=== PATIENT | female | born 1960 | race Caucasian/White ===

== ENCOUNTER 2020-05-10 11:08 | Outpatient (CLI) | payer OTHER, SELFPAY ==
--- NOTE | ~2020-05-10 | XR_ITS ---
EXAMINATION: XR knee RT 3V EXAM DATE: 05/10/2020 11:28 INDICATION: No known recent injury provided at this time. Pain of the right knee. TECHNIQUE: Three projections of the right knee. There is no prior study for comparison. FINDINGS: No evidence osteochondral defect or joint body in the right knee joint. There is mild pat ellofemoral primary osteoarthritis. There are no acute fractures or dislocations identified. There i s no subcutaneous gas. The soft tissue is unremarkable. There are no radiopaque foreign bodies. N o joint effusion. IMPRESSION: Mild right patellofemoral compartment osteoarthritis. Reviewed, dictated and finalized at location B.
--- NOTE | ~2020-05-10 | XR_ITS ---
EXAMINATION: XR knee LT 3V EXAM DATE: 05/10/2020 11:28 INDICATION: No known recent injury provided at this time. Pain of the knees. TECHNIQUE: Three projections of the left knee. There is no prior study for comparison. FINDINGS: No evidence osteochondral defect or joint body in the left knee joint. There is minimal patellofemoral compartment primary osteoarthritis. No joint effusion. There are no acute fractures o r dislocations identified. There is no subcutaneous gas. The soft tissue is unremarkable. There a re no radiopaque foreign bodies. IMPRESSION: Minimal left patellofemoral compartment osteoarthritis. Reviewed, dictated and finalized at location B.
--- NOTE | ~2020-05-10 | XR_ITS ---
EXAMINATION: XR hand BI arthritis min 3V EXAM DATE: 05/10/2020 11:28 INDICATION: No known recent injury provided at this time. Pain of the hands. TECHNIQUE: Right hand frontal, lateral and oblique projections obtained and reviewed. Left hand fron richard, lateral and oblique projections obtained and reviewed. Catchers projection of both hands. There is no prior study for comparison. FINDINGS: There is mild right 1st interphalangeal joint primary osteoarthritis. Otherwise joint spac es appear symmetric and uniform. There are no bony erosions identified. There are no acute fractures or dislocations identified. There is no subcutaneous gas. The soft tissue is unremarkable. There are no radiopaque foreign bodies. IMPRESSION: 1. Mild right 1st interphalangeal osteoarthritis. 2. Unremarkable left hand. Reviewed, dictated and finalized at location B.
== END 2020-05-10 11:09 | disposition home or self-care (01) ==
PROVIDERS: PCP Family Medicine; Visit Provider Family Medicine
DX: M25.50 Pain in unspecified joint (principal); M25.60 Stiffness of unspecified joint, not elsewhere classified; M19.041 Primary osteoarthritis, right hand; M17.0 Bilateral primary osteoarthritis of knee
CPT/HCPCS: 73130; 73562

== ENCOUNTER 2020-05-23 08:38 | Outpatient (CLI) | payer OTHER, SELFPAY ==
--- NOTE | 2020-05-23 08:50 | EST_ITS ---
Patient Info Name: Elsa Diane Age: 59 years : 1960 Gender: Female Ht: 67 in Wt: 160 lbs BSA: 1.86 m2 Technical Quality: Good Exam Date: 05/23/2020 9:19 AM Exam Location: [facility] Pulmonary Patient Status: Outpatient Admit Date: 05/23/2020 Staff Ordering Physician: Jayda Dumont MD Lining Feller Blindstitch: Sammy De La Torre RDCS, RT Attending Provider: LUIZ GAMBLE DO Referring Physician: Julia PALM; Exercise Technologist: Zohreh Nolan RDCS Exercise Physician: Luiz Gamble DO Exam Type: CA stress echo Study Info Indications I47.2 - Ventricular tachycardia Z82.49 - Family history of ischemic heart disease and other diseases of the circulatory system Treadmill exercise stress echocardiogram is performed. Summary 1. 1. Negative Terrence exercise stress test for ischemic ST changes by ECG criteria. 2. 2. Reduced functional capacity, achieving 8 METs of workload. 3. 3. Appropriate HR response to exercise. 4. 4. Appropriate HR recovery at 1 minute post exercise. 5. 5. Negative stress echocardiogram for ischemia by wall motion analysis. 6. 6. Patient informed of the above results. Stress Echo Findings Left Ventricle Appropriate increase in LV endocardial thickening with systole. Appropriate augmentation of contractility with systole. No wall motion abnormality. Left Ventricle Normal LV systolic function, no wall motion abnormality. Protocol: Terrence Stress ECG Details Stage: REST Duration (min): 6 min : 53 sec Speed (mph): 0.0 Grade (%): 0 HR (bpm): 65 SBP (mmHg): 135 DBP (mmHg): 78 METS: --- Stage: REST Duration (min): 25 min : 57 sec Speed (mph): 0.0 Grade (%): 0 HR (bpm): 77 SBP (mmHg): 135 DBP (mmHg): 78 METS: --- Stage: STAGE 1 Duration (min): 1 min : 0 sec Speed (mph): 1.7 Grade (%): 10 HR (bpm): 113 SBP (mmHg): 135 DBP (mmHg): 78 METS: --- Stage: STAGE 1 Duration (min): 2 min : 0 sec Speed (mph): 1.7 Grade (%): 10 HR (bpm): 128 SBP (mmHg): 135 DBP (mmHg): 78 METS: --- Stage: STAGE 1 Duration (min): 3 min : 0 sec Speed (mph): 1.7 Grade (%): 10 HR (bpm): 132 SBP (mmHg): 180 DBP (mmHg): 88 METS: --- Stage: STAGE 2 Duration (min): 1 min : 0 sec Speed (mph): 2.5 Grade (%): 12 HR (bpm): 135 SBP (mmHg): 180 DBP (mmHg): 88 METS: --- Stage: STAGE 2 Duration (min): 2 min : 0 sec Speed (mph): 2.5 Grade (%): 12 HR (bpm): 137 SBP (mmHg): 185 DBP (mmHg): 87 METS: --- Stage: STAGE 2 Duration (min): 3 min : 0 sec Speed (mph): 2.5 Grade (%): 12 HR (bpm): 142 SBP (mmHg): 185 DBP (mmHg): 87 METS: --- Stage: STAGE 3 Duration (min): 1 min : 0 sec Speed (mph): 3.4 Grade (%): 14 HR (bpm): 149 SBP (mmHg): 192 DBP (mmHg): 84 METS: --- Stage: STAGE 3 Duration (min): 1 min : 1 sec Speed (mph): 0.0 Grade (%): 0 HR (bpm): 148 SBP (mmHg): 192 DBP (mmHg): 84 METS: ---
== END 2020-05-23 08:39 | disposition home or self-care (01) ==
LOC: ANHCARD 08:42
PROVIDERS: PCP Family Medicine; Visit Provider Family Medicine
DX: I47.2 Ventricular tachycardia (principal); R68.89 Other general symptoms and signs; Z82.49 Family history of ischemic heart disease and other diseases of the circulatory system
CPT/HCPCS: 93351

== ENCOUNTER 2020-09-16 12:00 | Outpatient (NON) | payer OTHER, SELFPAY ==
[2020-09-18 18:21] LABS: SARS-CoV-2 RNA PCR Negative
== END 2020-09-16 12:01 ==
LOC: ANHCOVIDDT 12:01
PROVIDERS: PCP Family Medicine; Visit Provider Physician Assistant
DX: Z20.828 Contact with and (suspected) exposure to other viral communicable diseases (principal); R51.9 Headache, unspecified; J02.9 Acute pharyngitis, unspecified
CPT/HCPCS: 87635; C9803; U0003

== ENCOUNTER 2021-09-22 09:52 | Outpatient (CLI) | payer OTHER, SELFPAY ==
--- NOTE | ~2021-09-22 | CT_ITS ---
EXAMINATION: CT abdomen pelvis w con DATE: 09/22/2021 10:34 INDICATION: Abdominal distention TECHNIQUE: Computed tomography (CT) of the abdomen and pelvis was performed with 100 cc Omnipaque 350 intravenous contrast. The dose-length product was 600.07 mGy-cm. Automated exposure control and iter ative reconstruction technique were employed. COMPARISON: None. FINDINGS: Lung bases are unremarkable. Heart size normal. No significant pleural or pericardial effus ion. There is a fat-containing umbilical hernia. There is hepatomegaly with fatty infiltration of the liver. The spleen, pancreas, adrenal glands and kidneys are unremarkable. Gallbladder is present. No nobstructive bowel gas pattern. No free air or free fluid. Colonic diverticulosis without evidence fo r diverticulitis. Mild thickening of the body of the stomach, likely due to underdistention, although gastritis is not excluded. Small umbilical hernia containing fat. No acute osseous abnormality. Ther e are partially calcified uterine fibroids. IMPRESSION: 1. Mild thickening of the body of the stomach, likely due to underdistention, although gastritis is n ot excluded. 2: Colonic diverticulosis without evidence for diverticulitis. 3: Hepatomegaly with fatty infiltration of the liver. Reviewed, dictated and finalized at location A. OGY FACULTY MEMBER IMPRESSION: 1. Mild thickening of the body of the stomach, likely due to underdistention, a lthough gastritis is not excluded. 2: Colonic diverticulosis without evidence for diverticulitis. 3: Hepatomegaly with fatty infiltration of the liver.
[2021-09-22 10:15] LABS: Estimated Glomerular Filt Rate > 60
== END 2021-09-22 09:53 | disposition home or self-care (01) ==
LOC: ANHIMG 09:57
PROVIDERS: PCP Family Medicine; Visit Provider Physician Assistant
DX: R14.0 Abdominal distension (gaseous) (principal); K57.90 Diverticulosis of intestine, part unspecified, without perforation or abscess without bleeding; R16.0 Hepatomegaly, not elsewhere classified; R93.3 Abnormal findings on diagnostic imaging of other parts of digestive tract
CPT/HCPCS: 74177; Q9967

== ENCOUNTER → 2022-01-10 07:31 | Outpatient (CLI) | payer OTHER, SELFPAY ==
[2022-01-10 17:38] LABS: SARS-CoV-2 RNA PCR Negative
== END ==
PROVIDERS: PCP Family Medicine; Visit Provider Physician Assistant Medical
DX: R05.9 Cough, unspecified (principal); Z20.822 Contact with and (suspected) exposure to COVID-19
CPT/HCPCS: C9803; U0003; U0005

== ENCOUNTER 2023-06-08 11:16 | Outpatient (CLI) | payer OTHER, SELFPAY ==
[2023-06-08 11:42] LABS: Kit Draw Collected
== END 2023-06-08 11:17 | disposition home or self-care (01) ==
LOC: ANHGOSHLAB 11:17
PROVIDERS: PCP Family Medicine; Visit Provider Nurse Practitioner Family
DX: E55.9 Vitamin D deficiency, unspecified (principal)
CPT/HCPCS: 36415

== ENCOUNTER → 2023-10-14 13:43 | Outpatient (CLI) | payer OTHER, SELFPAY ==
--- NOTE | ~2023-10-14 | US_ITS ---
EXAMINATION: US carotid duplex BI DATE: 10/14/2023 14:07 INDICATION: Pulsatile tinnitus TECHNIQUE: Grayscale, color Doppler, and pulsed Doppler images of the cervical carotid arteries were obtained. The degree of vessel stenosis is placed in one of the following categories: normal, <50%, 5 0-69%, >=70% but less than near-occlusion, near-occlusion, or total occlusion. Note that percent sten osis relative to normal distal artery lumen diameter is indirectly measured from velocity measurement s as described by Edmond, et al. Radiology 2003; 229:340-346. Notes: Normal: Peak systolic velocity <125 centimeters/sec and no plaque <50%. Peak systolic velocity <125 ( EDV <40; ICA/CCA PSV ratio <2.0; used these factors only a tandem lesions or low cardiac output or co ntralateral disease) 50-69 %: PSV 125-230 (EDV 40-100; ratio 2-4) >= 70% but less than near occlusion: PSV greater than 230 (EDV > 100; ratio> 4.0) Near Occlusion: PSV that is variable; markedly narrowed lumen Occlusion: Absent flow on color/spectral Doppler and no lumen on menendez scale. COMPARISON: None. FINDINGS: RIGHT: The right common carotid artery (CCA) peak systolic velocity (PSV) is 160 cm/s. The right internal ca rotid artery (ICA) PSV is 134 cm/s. The right ICA end-diastolic velocity (EDV) is 33 cm/s. The right ICA/CCA PSV ratio is 0.8. The external carotid artery (ECA) PSV is 160 cm/s. There is antegrade flow in the right vertebral artery. LEFT: The left CCA PSV is 109 cm/s. The left ICA PSV is 114 cm/s. The left ICA EDV is 39 cm/s. The left ICA /CCA PSV ratio is 1.. The ECA PSV is 114 cm/s. There is antegrade flow in the left vertebral artery. IMPRESSION: 1. 50-69% stenosis in the right internal carotid artery by sonographic criteria. 2. Less than 50% stenosis in the left internal carotid artery by sonographic criteria. Reviewed, dictated and finalized at location L. TYPER IMPRESSION: 1. 50-69% stenosis in the right internal carotid artery by sonographic criteria . 2. Less than 50% stenosis in the left internal carotid artery by sonographic cr iteria.
== END ==
PROVIDERS: PCP Nurse Practitioner Family; Visit Provider Nurse Practitioner Family
DX: H93.A9 Pulsatile tinnitus, unspecified ear (principal); I65.23 Occlusion and stenosis of bilateral carotid arteries
CPT/HCPCS: 93880

== ENCOUNTER 2024-05-23 12:13 | Outpatient (CLI) | payer OTHER, SELFPAY ==
--- NOTE | ~2024-05-23 | XR_ITS ---
AP view of the pelvis and AP and lateral views of the right hip Clinical history: Pain Findings: No acute fracture or dislocation is seen. Osseous alignment is anatomic. Bilateral hip and SI joint spaces are preserved. Soft tissues are unremarkable. Impression: No significant abnormality is seen. Reviewed, dictated and finalized at [facility]. Impression: No significant abnormality is seen.
== END 2024-05-23 12:14 ==
LOC: GOSHIMG 12:14
PROVIDERS: PCP Family Medicine; Visit Provider Family Medicine
DX: M25.551 Pain in right hip (principal)
CPT/HCPCS: 73502

== ENCOUNTER 2025-05-24 11:22 | Outpatient (CLI) | payer OTHER, SELFPAY ==
--- NOTE | ~2025-05-24 | XR_ITS ---
EXAM/ PROCEDURE: XR hip BI 2V w AP pelvis - 05/24/2025 11:24 CDT HISTORY: 64 years old Female with bilat hip pain COMPARISON: None available TECHNIQUE: Three view(s) FINDINGS/ IMPRESSION: There are no fractures or dislocations.Joint space narrowing, subchondral sclerosis, subchondral cyst formation and osteophyte formation, compatible with mild osteoarthritis. Reviewed, dictated and finalized at location A.
== END 2025-05-24 11:23 | disposition home or self-care (01) ==
LOC: GOSHIMG 11:23
PROVIDERS: PCP Family Medicine; Visit Provider Family Medicine
DX: M25.551 Pain in right hip (principal); M25.552 Pain in left hip
CPT/HCPCS: 73521

== ENCOUNTER 2025-10-16 00:55 | Day surgery (SDC) | payer MEDICARE, SELFPAY ==
[2025-09-26 12:26] VITALS: BMI 25.1
--- OUTSIDE RECORDS SUMMARY | 2025-10-16 00:57 | XMS_ITS | Encounter Summary ---
Author Organization [facility] Address [address] [place] [address] Phone Care Team Providers Care Firepot Operator And Tender Name Role Phone Jayda Dumont MD Primary Care Provider + Reason for Visit * Reason Onset Date Comments Scheduling Appointments 10/08/2025 Encounter Details Date Type Department Care Team (Late st Contact Info) Description 10/08/2025 Telephone [facility] Medicine Ophthalmology [address] [place], [place] [phone] Ganga Romero MD [address] [id number] Scheduling Appointments Social History Tobacco Use Types Packs/Day Years Used Date Smoking Tobacco: Never Smokeless Tobacco: Never Alcohol Use Standard Drinks/Week Comments No 0 (1 standard drink = 0.6 oz pur e alcohol) AUDIT-C Answer Date Recorded Frequency of Alcohol Consumption Not on file 01/25/2024 Q2: How many drinks containi ng alcohol do you have on a typical day when you are drinking? 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 What is the patient coming in for? bilaterally upper and lower In the patients words, what is bringing them in? Blepharoplasty Who is referring? Dr Jory Buchanan Date scheduled: 11/05/25 Is the patient aware of the consultation fee of $250 due at check on the date of service? Yes NEW patients:This fee is for consultation only & does NOT go towards surgery fees. RET cosmetic patients: This fee will be applied to procedure Did you loy DO NOT BILL? Yes Has the estimate been added? No For Hylenex treatments: Hylenex- the first treatment is covered with the $250 consult fee. All subsequent Hylenex treatments will be priced at $250 per vial. This cost will apply to the cost of surgery. No need to add estimate. Please do not schedule with Nick. He no longer does cosmetic procedures. CTOR OF ADULT EPILEPSY documented in this encounter Plan of Treatment Not on file documented as of this encounter Visit Diagnoses Not on filedocumented in this encounter Additional Health Concerns Infection Onset Date Last Indicated Resolved Time COVID: Recovered Comment:Added based on recent COVID infection. 07/14/2025 08/16/2025 10/12/2025 7:[address] documented as of this encounter Care Teams Firepot Operator And Tender Relationship Specialty Start Date End Date Jayda Dumont MD PCP - General Family Medicine 05/29/21 documented as of this encounter
--- OUTSIDE RECORDS SUMMARY | 2025-10-16 00:57 | XMS_ITS | Encounter Summary ---
Author Organization [employer] Address [address] [place] [address] Care Team Providers Care Finish Mender Name Role Phone Jayda Dumont MD Primary Care Provider [phone] Encounter Details Date Type Department Care Team (Latest Contact Info) Description 04/24/2008 Outpatient Historical [facility], [address] Latesha Huggins MD [address] [facility] [address] [place] [address] Screening for Malignant Neoplasm of the Cervix Social History Tobacco Use Types Packs/Day Years Used Date Smoking Tobacco: Never Assessed Comments Unknown Sex and Gender Information Value Date Recorded Sex Assigned at Not on file Legal 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 Female 3:35 AM 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 Gender Identity Not on file Sexual Orientation Not on file documented as of this encounter Plan of Treatment Not on file documented as of this encounter Procedures Procedure Name Priority Date/Time Associated Diagnosis Comments CERV/VAG CYTOPATH, SUREPATH AND HPV Routine 04/24/2008 12:54 PM CDT documented in this encounter Results * CERV/VAG CYTOPATH, SUREPATH AND HPV (04/24/2008 12:54 PM CDT) SOURCE Information not provided [facility] [place] [place] LAST MENSTRUAL PERIOD Information not provided [facility] [place] HPV HIGH RISK DNA DETECTION NOT DETECTED [facility] [place] [place] Comment: REFERENCE RANGE: NOT DETECTED PATIENTS WITHOUT HIGH-RISK HPV RARELY HAVE CERVICAL CANCER. THE ANALYTICAL PERFORMANCE CHARACTERISTICS OF THIS ASSAY, WHEN USED TO TEST SUREPATH OR VAGINAL SPECIMENS, HAVE BEEN DETERMINED BY [employer]. METHODOLOGY: HYBRID CAPTURE WITH SIGNAL AMPLIFICATION. [facility] [address] [place] [address] JULIO ARMENTA MD REPORT STATUS FINAL [facility] TAX MANAGER: MIKAELA PATEL(ASCP) [facility] [place] Comment: Lab test performed by: [employer] [facility] [address] [place] [address] JULIO ARMENTA MD PAP INTERP Negative for intraepithelial lesion or malignancy. [facility] [place] PREV PAP: Information not provided [facility] [place] [place] ADEQUACY: Satisfactory for evaluation. Endocervical/trans formation zone component present. Age and/or menstrual status not provided [facility] [place] CLINICAL INFORMATION Information not provided [facility] [place] PREV BX: Information not provided [facility] [place] Specimen from uterine cervix (specimen) 04/24/2008 12:54 PM CDT 04/24/2008 12:54 PM CDT Latesha Huggins MD PATHOLOGY/CYTOLOGY SUYAPA Penaloza [facility] [place] CLIA# [id number] [facility] [place] [address] documented in this encounter Visit Diagnoses Diagnosis Screening for malignant neoplasm of the cervix documented in this encounter Care Teams Finish Mender Relationship Specialty Start Date End Date Jayda Dumont MD PCP - General Family Practice 05/09/21 documented as of this encounter
--- OUTSIDE RECORDS SUMMARY | 2025-10-16 00:57 | XMS_ITS ---
Author Organization [facility] [address] Address [address] [place] [address] Care Team Providers Care Costumed Character Name Role Phone Jayda Dumont MD Primary Care Provider + Transplant Episode Kidney Potential Donor [facility] ([place], [place]) - [facility] Referred on 06/06/2020 Marked as Active on 06/06/2020 Reason: Pending Clinical Review Kidney CoordinatorTonja Hemphill RN Fax: N/A Email: N/A Care Team Name Role Phone Fax Email Tonja Hemphill RN Kidney Coordinator [phone] N/A N/A Events Pre-Donation Referred: 06/06/2020
--- OUTSIDE RECORDS SUMMARY | 2025-10-16 00:57 | XMS_ITS | Clinical Summary ---
Author Organization [facility] Address [address] [place] [address] Care Team Providers Care Drill Operator Pneumatic Name Role Phone Jayda Dumont MD Primary Care Provider [phone] Source Comments [facility],non-owned Affiliates and Associated Physician Practices is amultiple site organization consisting of ambulatory clinics and hospital sitesin [place], [place], [place] and [place]. This disclosure is being madepursuant to the Care Everywhere program and may not contain all information available regarding this patient. Last updated 18.[facility] Allergies No known active allergies Medications * Be aware that medications may not be up to date on this document. Alwaysverify current medications with the patient. DiphenhydrAMINE HCl, Sleep, (NYTOL) 25 MG Take 25 mg by mouth as directed 7 Active conj estrog-medroxyp rogest alexi (PREMPRO) 0.625-2.5 MG tablet Take 1 (one) tablet by mouth once daily 6 Active levothyroxine (SYNTHROID) 100 MCG tablet Take 1 (one) tablet by mouth daily before breakfast Active metoprolol tartrate (LOPRESSOR) 25 MG tablet Take 0.5 (one-half) tablet by mouth 2 times daily 9 Active ibuprofen (MOTRIN) 200 MG tablet Take 1 (one) tablet by mouth as needed Active acetaminophen (TYLENOL) 500 MG tablet Take 1 (one) tablet by mouth every 6 hours as needed Active busPIRone (BUSPAR) 10 MG tablet Take 1 (one) tablet by mouth 2 times daily 2 Active tretinoin (Retin-A) 0.025 % creamIndication s:Lentigines,Rh ytides Pea sized amount to arms and legs at night mixed with a bland cream. 30 days supply. 45 g 5 5 Active ergocalciferol (DRISDOL) 1.25 MG (48865 UT) capsule Take 1 (one) capsule by mouth every 7 days 0 10/02/20 25 Discontinu ed(Tx Complete) Active Problems Problem Noted Date Diagnosed Date Pulsatile tinnitus of left ear 06/06/2025 Inflamed seborrheic keratosis 01/14/2022 Solar lentiginosis 03/03/2021 Assessment & Plan (03/03/2021 12:34 PM CDT): - Explained benign nature, reassurance provided. - Advised pt on consistent sunscreen use (SPF > 30, UVA + UVB). - Start Triluma nightly Jul - March, Altreno nightly April - June (see cosmetic note) - Sunscreen handout provided Multiple benign melanocytic nevi of upper and lower extremities and trunk 03/03/2021 Assessment & Plan (03/03/2021 12:34 PM CDT): - Benign, reassurance - Counseled on importance of daily sun protection (Broad spectrum, SPF >30) - Sun screen hand out provided Squamous cell carcinoma of skin 04/08/2020 Overview (04/08/2020): Overview: squamous cell removal upper right chest removal 11/2010 Dense breasts 05/02/2018 Obesity 01/03/2018 Excessive subcutaneous fat 01/03/2018 Acquired hypothyroidism 08/21/2016 Overview (04/08/2020): Hypothyroidism (acquired) Anxiety 08/21/2016 Overview (04/08/2020): Anxiety Atrial paroxysmal tachycardia 08/21/2016 Overview (04/08/2020): PAT (paroxysmal atrial tachycardia) Benign hypertension 08/21/2016 Overview (04/08/2020): HTN (hypertension), benign Nonsustained ventricular tachycardia 08/21/2016 Overview (04/08/2020): NSVT (nonsustained ventricular tachycardia) Palpitations 08/21/2016 Overview (04/08/2020): Palpitations Panic attack 08/21/2016 Overview (04/08/2020): Panic attacks Vaginal atrophy 04/24/2013 Actinic keratosis 04/21/2011 Seborrheic keratosis 04/21/2011 Assessment & Plan (03/03/2021 12:33 PM CDT): -Benign, reassurance History of SCC (squamous cell carcinoma) of skin 04/21/2011 Assessment & Plan (03/03/2021 12:32 PM CDT): - No evidence of recurrence - Sun Screen hand out provided - Q12mos FBSE Resolved Problems Problem Noted Date Diagnosed Date Resolved Date Personal history of other ma lignant neoplasm of skin 04/21/2011 04/08/2020 Encounters Date Type Department Care Team Description 10/02/2025 1:40 PM BUCKLE FRAME SHAPER Cosmetic Visit [facility] - Cosmetic Dermatology [address] , [facility] [address] [place] [address] Jory Buchanan MD Lentigines ; Rhytides 10/02/2025 1:30 PM BUCKLE FRAME SHAPER Office Visit [facility] - Cosmetic Dermatology [address], [facility] [address] [place] [address] Jory Buchanan MD Actinic keratosis (Primary Dx); Arora angioma; Lentigines; Seborrheic keratoses; Multiple benign melanocytic nevi of upper and lower extremities and trunk; History of squamous cell carcinoma of skin 07/30/2025 Telephone [facility] - Centralized Scheduling [address] [place] [id number] Demond Sexton MD from Last 3 Months Immunizations Immunization Administration Dates Next Due [employer] BIVALENT 12Y+ 30mcg/0.3ML HEP A VACCINE, ADULT 04/20/2019,06/01/2018 INFLUENZA VACCINE 09/24/2021,08/24/2019 INFLUENZA VACCINE, CELL CULT URE, QUADR. (FLUCELVAX QUADRIVALENT; 6MO+) (CCIIV4) 09/11/2022 INFLUENZA VACCINE, QUADR. (F LUZONE; FLULAVAL; FLUARIX; AFLURIA QUADRIVALENT; 6MO+), 0.5 ML (IIV4) 09/16/2018 TDAP, HISTORIC VACCINE 05/21/2023 Zoster Hzv Vacc Recombinant Inj Im 07/21/2018, iNFLUENZA VACCINE, RECOM-BORREGO, QUADR. (FLUBLOCK QUADRIVALENT; 18Y+) (RIV4) 09/24/2021,09/27/2020,09/15/2019 Family History Medical History Relation Name Comments Cancer - Skin, Non Melanoma Maternal Aunt Cancer - Skin, Melanoma Neg Hx Eczema Neg Hx Psoriasis Neg Hx Relation Name Status Comments Maternal Aunt Social History Tobacco Use Types Packs/Day Years Used Date Smoking Tobacco: Never Smokeless Tobacco: Never Alcohol Use Standard Drinks/Week Comments Not Currently 0 (1 standard drink = 0.6 oz pur e alcohol) Comments Unknown Sex and Gender Information Value Date Recorded Sex Assigned at Not on file Legal Sex Female 5:27 PM BUCKLE FRAME SHAPER Gender Identity Not on file Sexual Orientation Not on file Last Filed Vital Signs Vital Sign Reading Time Taken Comments Blood Pressure 156/96 08/09/2023 2:47 PM CDT Pulse 80 08/09/2023 2:47 PM CDT Temperature 36.3 C (97.3 F) 01/03/2018 10:33 AM BUCKLE FRAME SHAPER Respiratory Rate - - Oxygen Saturation - - Inhaled Oxygen Concentration - - Weight 70.3 kg (155 lb) 06/06/2025 3:17 PM CDT Height 170.2 cm (5' 7) 06/06/2025 3:17 PM CDT Body Mass Index 24.28 06/06/2025 3:17 PM CDT Plan of Treatment Upcoming Encounters Date Type Department Care Team (Late st Contact Info) Description 06/05/2026 12:45 PM CDT Office Visit [facility] - ENT [address], [place] [address] [place] [address] Demond Sexton MD [address] [place] [address] [address] Health Maintenance Due Date Last Done Comments COLOGUARD (AGES 45-75) - COLON CA SCREENING 1960 COLON MONITORING 1960 COLONOSCOPY - COLON CA SCREENING 1960 CT COLONOGRAPHY - COLON CA SCREENING 1960 Colorectal Cancer Screening 1960 FIT - COLON CA SCREENING 1960 FLEX SIG - COLON CA SCREENING 1960 LIPID TESTING 1960 HIV SCREENING 1975 HEPATITIS C SCREENING 06/22/1978 PAP with HPV 1990 PNEUMOCOCCAL VACCINE 50+ (1 of 1 - PCV) 2010 Cervical Cancer Screening 04/30/2018 PAP SMEAR 04/29/2021 04/29/2018 DEPRESSION SCREENING 11/15/2024 MEDICARE AWV CALENDAR YEAR 2024 COVID-19 VACCINE ( season) 2025 11/20/2022, 03/23/2022, 08/22/2021, Additional history exists INFLUENZA VACCINE (#1) 2025 , 09/11/2022, 09/24/2021, Additional history exists MAMMOGRAM 05/24/2027 05/24/2025, 05/15, 06/06/2024, Additional history exists DTAP/TDAP/TD VACCINES (2 - Td or Tdap) 05/21/2033 05/21/2023 Respiratory Syncytial Virus (RSV) Vaccine Pt: or over 60 yrs (1 - 1-dose 75+ series) 2035 BONE DENSITY TESTING Completed 04/29/2018, 04/24/20 13 ZOSTER VACCINE Completed 07/21/2018, 04/15/2018 HEPATITIS B VACCINE Aged Out No longe r eligible based on patient's age to complete this topic HIB VACCINE Aged Out No longer eligi ble based on patient's age to complete this topic HPV VACCINE Aged Out No longer eligi ble based on patient's age to complete this topic MENINGOCOCCAL (Group B) VACCINE SHARED DECISION-MAKING Aged Out No longer eligible based on patient's age to complete this topic MENINGOCOCCAL GROUPS A/C/Y/W VACCINE Aged Out No longer eligible based on patient's age to complete this topic Procedures Procedure Name Priority Date/Time Associated Diagnosis Comments ID DESTROY PREMALIG LESION, 2-14 Routine 10/02/2025 2:19 PM BUCKLE FRAME SHAPER Actinic keratosis ID DESTROY PREMALIG LESION, 1ST LESION Routine 10/02/2025 2:19 PM BUCKLE FRAME SHAPER Actinic keratosis from Last 3 Months Results * ID DESTROY PREMALIG LESION, 1ST LESION, ID DESTROY PREMALIG LESION, 2-14 (10/02/2025 2:19 PM BUCKLE FRAME SHAPER) Narrative Jory Buchanan MD - 10/02/2025 2:19 PM BUCKLE FRAME SHAPER Jory Buchanan MD 10/02/2025 2:36 PM Diagnosis and treatment options discussed. Cryotherapy (Liquid Nitrogen) to 7 lesions for 4-6 seconds each. Number of cycles: 1. Wound care reviewed. Jory Buchanan MD PROCEDURE/MINOR SURGIC AL ORDERABLES Final Result from Last 3 Months Insurance [employer] MEDICARE ADV Care Teams Drill Operator Pneumatic Relationship Specialty Start Date End Date Jayda Dumont MD [address] [place] [address] PCP - General 01/13/22
--- OUTSIDE RECORDS SUMMARY | 2025-10-16 00:57 | XMS_ITS | Encounter Summary ---
Author Organization [facility] Address [address] [place] [address] Phone Care Team Providers Care Senior C Developer Name Role Phone Catalino Dumont MD Primary Care Provider [phone] Jayda Dumont MD Primary Care Provider + Encounter Details Date Type Department Care Team (Latest Contact Info) Description 05/23/2020 Orders Only [facility] Scanning, Provider Social History Tobacco Use Types Packs/Day Years Used Date Smoking Tobacco: Never Smokeless Tobacco: Never Alcohol Use Standard Drinks/Week Comments No 0 (1 standard drink = 0.6 oz pur e alcohol) Comments Unknown Sex and Gender Information Value Date Recorded Sex Assigned at Not on file Legal Sex Female 1:55 AM DRUGLESS DOCTOR Gender Identity Female 01/23/2024 5:27 PM CDT Sexual Orientation Straight 01/23/2024 5: 27 PM CDT documented as of this encounter Plan of Treatment Not on file documented as of this encounter Procedures Procedure Name Priority Date/Time Associated Diagnosis Comments CARDIOLOGY DOCUMENT SCAN 05/23/2020 documented in this encounter Results * SCAN - CARDIOLOGY (05/23/2020) Anatomical Region Laterality Modality Other us Provider Scanning [facility] CARDIAC SERVICES PROCEDURES Final Result documented in this encounter Visit Diagnoses Not on filedocumented in this encounter Additional Health Concerns Infection Onset Date Last Indicated Resolved Time COVID: Suspected 10/17/2022 10/17/2022 10/17/2022 4:12 PM DRUGLESS DOCTOR Influenza, adult 10/17/2022 10/17/2022 10/24/2022 3:06 AM DRUGLESS DOCTOR COVID: Suspected 12/06/2022 12/06/2022 12/06/2022 2:47 PM DRUGLESS DOCTOR COVID: Suspected 01/20/2023 01/20/2023 01/20/2023 11:36 AM DRUGLESS DOCTOR COVID: Suspected 06/03/2024 06/03/2024 06/03/2024 10:32 AM CDT COVID: Suspected 09/23/2024 09/23/2024 09/23/2024 11:22 AM DRUGLESS DOCTOR COVID: Suspected 02/01/2025 02/01/2025 02/01/2025 10:40 AM CDT COVID: Suspected 07/04/2025 07/04/2025 07/04/2025 2:14 PM CDT COVID19 07/04/2025 07/04/2025 07/14/2025 7:26 PM CDT COVID: Recovered Comment:Added based on recent COVID infection. 07/14/2025 08/16/2025 10/12/2025 7:[address] documented as of this encounter Care Teams Senior C Developer Relationship Specialty Start Date End Date Catalino Dumont MD PCP - General 06/04/17 05/28/21 Jayda Dumont MD PCP - General Family Medicine 05/29/21 documented as of this encounter
--- OUTSIDE RECORDS SUMMARY | 2025-10-16 00:57 | XMS_ITS | Clinical Summary ---
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 Active diphenhydrAMINE (BENADRYL) 25 mg capsule Take 1 tablet/capsule (25 mg total) by mouth nightly as needed for itching Active busPIRone (BUSPAR) 10 mg tablet nightly 2 Active levothyroxine (SYNTHROID) 100 mcg tablet Take 1 tablet (100 mcg total) by mouth daily 2 Active benzonatate (TESSALON) 100 mg capsuleIndicati ons:Cough Take 1 capsule (100 mg total) by mouth 3 (three) times a day as needed for cough 42 capsule 4 Active Additional Information Patient not taking.Reported on 08/23/2025 metoprolol XL (TOPROL-XL) 25 mg extended release tablet Take 0.5 tablets (12.5 mg total) by mouth daily 15 tablet 11 5 09/12/20 26 Active Active Problems Problem Noted Date Diagnosed Date Pulsatile tinnitus 09/24/2023 Assessment & Plan (09/24/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 - Advised pt on consistent sunscreen use (SPF > 30, UVA + UVB). - Start Triluma nightly Jul - March, Altreno nightly April - June (see cosmetic note) - Sunscreen handout provided Squamous cell carcinoma of skin 04/08/2020 Overview (04/11/2024): Overview: squamous cell removal upper right chest removal 11/2010 squamous cell removal upper right chest removal 11/2010 Dense breasts 05/02/2018 Excessive subcutaneous fat 01/03/2018 Obesity 01/03/2018 Anxiety 08/21/2016 Overview (02/18/2017): Anxiety Acquired hypothyroidism 08/21/2016 Overview (02/18/2017): Hypothyroidism (acquired) Atrial paroxysmal tachycardia 08/21/2016 Overview (02/18/2017): PAT (paroxysmal atrial tachycardia) Nonsustained ventricular tachycardia 08/21/2016 Overview (02/18/2017): NSVT (nonsustained ventricular tachycardia) Panic attack 08/21/2016 Overview (02/18/2017): Panic attacks Palpitations 08/21/2016 Overview (02/18/2017): Palpitations Assessment & Plan (08/23/2025 11:20 AM CDT): -History of NSVT (6 beats), PACs and short runs of atrial tachycardia -Recent increase in palpitations - will get a 7 day event monitor -Continue metoprolol XL 12.5 mg nightly, she is willing to try increasing dose to 25 mg nightly pending monitor results -Emotional stressors may also be contributing to her symptoms; she plans to pursue counseling in setting of recent loss of her mother and sister Assessment & Plan (08/10/2024 11:18 AM CDT): History of NSVT (6 beats), PACs and short runs of atrial tachycardia Intermittent brief palpitations. Will switch to long acting metoprolol for improved coverage - metoprolol XL 12.5 mg daily Assessment & Plan (08/12/2023 11:10 AM CDT): History of NSVT (6 beats), PACs and short runs of atrial tachycardia She recently discontinued metoprolol without recurrence of palpitations Prescription provided for metoprolol 12.5 mg every 6 hours PRN palpitations Benign hypertension 08/21/2016 Overview (02/18/2017): HTN (hypertension), benign Assessment & Plan (08/10/2024 11:18 AM CDT): BP well controlled Assessment & Plan (08/12/2023 11:11 AM CDT): BP elevated today, controlled on home readings Monitor home BP 3x/week and notify us/PCP if consistently elevated Pre-syncope 08/06/2016 Vaginal atrophy 04/24/2013 Actinic keratosis 04/21/2011 Inflamed seborrheic keratosis 04/21/2011 Overview (04/11/2024): Last Assessment & Plan: -Benign, reassurance Encounters Date Type Department Care Team Description 10/08/2025 Telephone [facility] Medicine Ophthalmology [address] [place] [address] Ganga Romero MD Scheduling Appointments 09/12/2025 Telephone [facility] Cardiology [address] [facility] [address]th [place] [address] [place] [address] Thomas Fermin MD 08/23/2025 11:15 AM CDT Ancillary Procedure [facility] [address] [place] [address] [address] [place] [address] Palpitations; Nonsustained ventricular tachycardia (HCC); Atrial paroxysmal tachycardia 08/23/2025 10:30 AM CDT Office Visit [facility] Cardiology [facility] [address] [place] [address] Tamela Albrecht, CECE Palpitations (Primary Dx); Nonsustained ventricular tachycardia (HCC); Atrial paroxysmal tachycardia 08/23/2025 Results Follow-Up [facility] Cardiology [facility] [address]th [place] [address] [place] [address] Tamela Albrecht, CECE ECG 12 lead, Extended/Mcc Holter Patch (>48 hours up to 7 days) from Last 3 Months Immunizations Immunization Administration Dates Next Due Hep A, Adult 04/20/2019,06/01/2018 Influenza, Quadrivalent, Rec ombinant, Egg Free, Preservative Free, Intramuscular 09/24/2021,09/27/2020,09/15/2019 Influenza, Quadrivalent, Spl it, Preservative Free, Intramuscular 09/16/2018 Influenza, Trivalent, Cell C ulture-based MDCK, Preservative Free, Antibiotic Free, Intramuscular 09/11/2022 Influenza, Unspecified 08/24/2019 Tdap 05/21/2023 ZOSTER Recombinant 07/22/2018,07/21/2018, 018 Medical History Medical History Date Comments Disorder of thyroid Thyroid dise ase Family History Medical History Relation Name Comments Car Accident Father Car accident; Other Mother Alive and well; Heart disease Other 1 Family history of Cardiovascular disease; Coronary artery disease Other 2 Fami ly history of Coronary artery disease; Hypertension Other 3 Family history of Hypertension; Relation Name Status Comments Father Mother Alive Other 1 Other 2 Other 3 Social History Tobacco Use Types Packs/Day Years Used Date Smoking Tobacco: Never Smokeless Tobacco: Never Tobacco Cessation:Counseling Given: Not Answered Alcohol Use Standard Drinks/Week Comments No 0 [...] on file 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[employer] Gender Identity Female 01/23/2024 5:27 PM CDT Sexual Orientation Straight 01/23/2024 5: 27 PM CDT Last Filed Vital Signs Vital Sign Reading Time Taken Comments Blood Pressure 120/82 08/23/2025 10:34 AM CDT Pulse 68 08/23/2025 10:34 AM CDT Temperature 36.8 C (98.2 F) 07/04/2025 2:06 PM CDT Respiratory Rate 20 07/04/2025 2:06 PM CDT Oxygen Saturation 95% 08/23/2025 10:34 AM CDT Inhaled Oxygen Concentration - - Weight 69.9 kg (154 lb) 08/23/2025 10:34 AM CDT Height 170.2 cm (5' 7) 08/23/2025 10:34 AM CDT Body Mass Index 24.12 08/23/2025 10:34 AM CDT Plan of Treatment Health Maintenance Due Date Last Done Comments Cervical Cancer Screening 1960 Colon Cancer Screening-Colonoscopy 1960 Depression Screening 1960 Fall Risk Assessment 1960 Hepatitis C Screening 1960 Hepatitis B Screening 1978 Pneumococcal vaccine 65+ (1 of 2 - PCV) 1979 Osteoporosis Screening-Bone Density Scan 04/29/2020 04/29/2018, 04/29/2018, 04/24/2013 Well Visit 65+ 2025 Influenza Vaccine (#1) 2025 , 09/11/2022, 09/24/2021, Additional history exists Breast Cancer Screening-Mammogram 05/24/2026 05/24/2025, 05/24/2025, 06/06/2024, Additional history exists DTaP/Tdap/Td Vaccine (3 - Td or Tdap) 05/21/2033 05/21/2023, 05/02/2013 Zoster Vaccine Completed 07/22/2018, 04/2018, 04/15/2018 Procedures Procedure Name Priority Date/Time Associated Diagnosis Comments EXTENDED/SENIOR CARE HOLTER PATCH (>48 HOURS UP TO 7 DAYS) Routine 08/23/2025 11:22 AM CDT Palpitations Nonsustained ventricular tachycardia (HCC) Atrial paroxysmal tachycardia ECG 12-LEAD Routine 08/23/2025 10:40 AM CDT Palpitations from Last 3 Months Results * Extended/Mcc Holter Patch (>48 hours up to 7 days) (08/23/2025 11:22 AM CDT) Anatomical Region Laterality Modality Electrocardiogra phy 08/26/2025 11:3 2 AM CDT Narrative 09/07/2025 12:01 PM CDT HOLTER MONITOR Patient Name: ELSA MOSQUEDA M : 1960 (65y 2m) Gender: F Study Date: 08/26/2025 11:32:51 AM Ht(Inch): Wt(Lb): BSA: Tech: Location: [facility] Order Provider: TAMELA ALBRECHT BMI: Ref Provider: TAMELA ALBRECHT PROCEDURES: Holter Report: EXTENDED/SENIOR CARE HOLTER PATCH (>48 HOURS UP TO 7 DAYS) [[id number]]. Enrollment Period: 2025-08-26 00:00:00 through 2025-09-02 00:00:00. Location: [facility]. INDICATIONS: R00.2 Palpitations, I47.29 Other ventricular tachycardia, and I47.19 Other supraventricular tachycardia. FINDINGS: Holter Data: Min Rate: 49 BPM Min Rate Timestamp: 2025-08-30 09:49:02 Bradycardia (% of study): 18 Max Rate: 172 BPM Max Rate Timestamp: 2025-08-31 19:22:45 Tachycardia (% of study): 5 Mean Rate: 73 BPM AFib (% of study): 0 Singlets (PACs): 621 events Couplets (PACs): 26 events Total (PACs): 785 events Singlets (PVCs): 19 events Couplets (PVCs): 0 events Total (VE): 19 events Runs (VT): 0 events Total beats: 691659 SIGNIFICANT PAUSES: 0 >3 sec Protocol: Recording Duration (Ordered): [id number] Recording Duration (Actual): 278205.69 6 triggers for chest pain showing sinus rhythm or supraventricular tachycardia and two with no symptoms recorded showing sinus tach or sinus rhythm SUMMARY: *The predominant rhythm was Sinus. *The Maximum Heart Rate recorded was 172 bpm, 08/31 19:22:45, the Minimum Heart Rate recorded was 49 bpm, 08/30 09:49:02, and the Average Heart Rate was 73 bpm. *There were 19 VE beats with a burden of <1 %. *There were 785 SVE beats with a burden of <1 %. There were 22 occurrences of Supraventricular Tachycardia with the Fastest episode 172 bpm, 08/31 19:22:43, and the Longest episode 11 beats, 08/27 11:59:01. *There were 8 Patient Triggers.; *The predominant rhythm was Sinus. *The Maximum Heart Rate recorded was 172 bpm, 08/31 19:22:45, the Minimum Heart Rate recorded was 49 bpm, 08/30 09:49:02, and the Average Heart Rate was 73 bpm. *There were 19 VE beats with a burden of <1 %. *There were 785 SVE beats with a burden of <1 %. There were 22 occurrences of Supraventricular Tachycardia with the Fastest episode 172 bpm, 08/31 19:22:43, and the Longest episode 11 beats, 08/27 11:59:01. *There were 8 Patient Triggers. CONCLUSIONS: 1. I have reviewed the PDF and all the ECG strips. I agree with the interpretations as detailed in the report 2. The PDF can be found in the Epic Patient chart. Please go to the Cardiology tab, click on the holter or event exam. Scroll to bottom where the ORDER LEVEL Documents reside and click the blue link to the pdf. Electronically Signed By: Abel Garza MD 09/07/2025 10:59:00 AM CDT Procedure Note Abel Garza MD - 09/07/2025 HOLTER MONITOR Patient Name: ELSA MOSQUEDA M : 1960 (65y 2m) Gender: F Study Date: 08/26/2025 11:32:51 AM Ht(Inch): Wt(Lb): BSA: Tech: Location: [facility] Order Provider: TAMELA ALBRECHT BMI: Ref Provider: TAMELA ALBRECHT PROCEDURES: Holter Report: EXTENDED/SENIOR CARE HOLTER PATCH (>48 HOURS UP TO 7 DAYS)[[id number]]. Enrollment Period: 2025-08-26 00:00:00 through 2025-09-02 00:00:00. Location: [facility]. INDICATIONS: R00.2 Palpitations, I47.29 Other ventricular tachycardia, and I47.19 Other supraventricular tachycardia. FINDINGS: Holter Data: Min Rate: 49 BPM Min Rate Timestamp: 2025-08-30 09:49:02 Bradycardia (% of study): 18 Max Rate: 172 BPM Max Rate Timestamp: 2025-08-31 19:22:45 Tachycardia (% of study): 5 Mean Rate: 73 BPM AFib (% of study): 0 Singlets (PACs): 621 events Couplets (PACs): 26 events Total (PACs): 785 events Singlets (PVCs): 19 events Couplets (PVCs): 0 events Total (VE): 19 events Runs (VT): 0 events Total beats: 709224 SIGNIFICANT PAUSES: 0 >3 sec Protocol: Recording Duration (Ordered): [id number] Recording Duration (Actual): 045773.69 6 triggers for chest pain showing sinus rhythm or supraventriculartachycardia and two with no symptoms recorded showing sinus tach or sinus rhythm SUMMARY: *The predominant rhythm was Sinus. *The Maximum Heart Raterecorded was 172 bpm, 08/31 19:22:45, the Minimum Heart Rate recorded was 49 bpm, 08/1609:49:02, and the Average Heart Rate was 73 bpm. *There were 19 VE beats with a burden of <1%. *There were 785 SVE beats with a burden of <1 %. There were 22 occurrences ofSupraventricular Tachycardia with the Fastest episode 172 bpm, 08/31 19:22:43, and theLongest episode 11 beats, 08/27 11:59:01. *There were 8 Patient Triggers.; *The predominant rhythm was Sinus. *The Maximum Heart Rate recorded was 172 bpm, 08/31 19:22:45, the MinimumHeart Rate recorded was 49 bpm, 08/30 09:49:02, and the Average Heart Rate was 73bpm. *There were 19 VE beats with a burden of <1 %. *There were 785 SVE beats with a burden of <1 %. There were 22 occurrencesof Supraventricular Tachycardia with the Fastest episode 172 bpm, 08/1719:22:43, and the Longest episode 11 beats, 08/27 11:59:01. *There were 8 Patient Triggers. CONCLUSIONS: 1. I have reviewed the PDF and all the ECG strips. I agree with theinterpretations as detailed in the report 2. The PDF can be found in the Epic Patient chart. Please go to theCardiology tab, click on the holter or event exam. Scroll to bottom where the ORDER LEVELDocuments reside and click the blue link to the pdf. Electronically Signed By: Abel Garza MD 09/07/2025 10:59:00 AM CDT us Tamela Albrecht NP [facility] PROCE DURES Final Result * ECG 12 lead (08/23/2025 10:40 AM CDT) us Tamela Albrecht NP ECG ORDERABLES Edited Re sult - Final from Last 3 Months Insurance [employer] [facility] [id number] [facility] [id number] [facility] [id number] Care Teams Iron Launder Operator Relationship Specialty Start Date End Date Jayda Dumont MD PCP - General Family Medicine 05/29/21
--- OUTSIDE RECORDS SUMMARY | 2025-10-16 00:57 | XMS_ITS | Encounter Summary ---
Author Organization [facility] Address [address] [place] [address] Phone Care Team Providers Care Supervisor Roving Department Name Role Phone Catalino Dumont MD Primary Care Provider [phone] Jayda Dumont MD Primary Care Provider + Encounter Details Date Type Department Care Team (Late st Contact Info) Description 06/09/2018 Telephone [facility] Cardiology [address] [facility] 8th [place] [address] [place] [address] Thomas Fermin MD [address] [facility] [address] [place], [place] [id number] Social History Tobacco Use Types Packs/Day Years Used Date Smoking Tobacco: Never Alcohol Use Standard Drinks/Week Comments No 0 (1 standard drink = 0.6 oz pur e alcohol) Comments Unknown Sex and Gender Information Value Date Recorded Sex Assigned at Not on file 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 Gender Identity Female 01/23/2024 5:27 PM CDT Sexual Orientation Straight 01/23/2024 5: 27 PM CDT documented as of this encounter Functional Status * BP Location Answer Date of Assessment Author Right arm 06/10/2018 9:06 AM CDT Mere Agosto RMA * BP Location Answer Date of Assessment Author Right del rosario 06/10/2018 9:06 AM CDT Mere Agosto RMA documented as of this encounter Plan of Treatment Not on file documented as of this encounter Visit Diagnoses Not on filedocumented in this encounter Additional Health Concerns Infection Onset Date Last Indicated Resolved Time COVID: Suspected 10/17/2022 10/17/2022 10/17/2022 4:12 PM PIGMENT SUPPLIER Influenza, adult 10/17/2022 10/17/2022 10/24/2022 3:06 AM PIGMENT SUPPLIER COVID: Suspected 12/06/2022 12/06/2022 12/06/2022 2:47 PM PIGMENT SUPPLIER COVID: Suspected 01/20/2023 01/20/2023 01/20/2023 11:36 AM PIGMENT SUPPLIER COVID: Suspected 06/03/2024 06/03/2024 06/03/2024 10:32 AM CDT COVID: Suspected 09/23/2024 09/23/2024 09/23/2024 11:22 AM PIGMENT SUPPLIER COVID: Suspected 02/01/2025 02/01/2025 02/01/2025 10:40 AM CDT COVID: Suspected 07/04/2025 07/04/2025 07/04/2025 2:14 PM CDT COVID19 07/04/2025 07/04/2025 07/14/2025 7:26 PM CDT COVID: Recovered Comment:Added based on recent COVID infection. 07/14/2025 08/16/2025 10/12/2025 7:[address] documented as of this encounter Care Teams Supervisor Roving Department Relationship Specialty Start Date End Date Catalino Dumont MD PCP - General 06/04/17 05/28/21 Jayda Dumont MD PCP - General Family Medicine 05/29/21 documented as of this encounter
--- OUTSIDE RECORDS SUMMARY | 2025-10-16 00:57 | XMS_ITS | Clinical Summary ---
Author Organization [facility] Address [address] [place] [address] Phone Care Team Providers Care Line Installer Repairer Name Role Phone Jayda Dumont MD Primary Care Provider [phone] Allergies No known active allergies Medications IBUPROFEN (ADVIL ORAL) Take by mouth. Active LEVOTHYROXINE 75 mcg tablet 88 mcg . 04/07/2015 Active ACETAMINOPHEN (TYLENOL ORAL) Take by mouth. Active metoprolol tartrate (LOPRESSOR) 25 mg tablet 12.5 mg . 03/14/2017 Active busPIRone (BUSPAR) 10 mg tablet TK 1 T PO QID 4 04/02/2017 Active conjugated estrogens-medrox yPROGESTERone (PREMPRO) 0.625-2.5 mg Tablet Take 1 Tablet by mouth daily. 90 Tablet 3 04/29/2018 Active Active Problems Problem Noted Date Diagnosed Date Dense breasts 05/02/2018 Vaginal atrophy 04/24/2013 Squamous cell carcinoma of skin Overview (05/10/2012): squamous cell removal upper right chest removal 11/2010 Encounters Date Type Department Care Team Description 10/02/2025 External Device Data ST[facility] ABSTRACTION Provider, Abstract 09/05/2025 External Device Data [facility] ABSTRACTION Provider, Abstract 09/04/2025 External Device Data [facility] ABSTRACTION Provider, Abstract 07/31/2025 External Device Data [facility] ABSTRACTION Provider, Abstract from Last 3 Months Family History Medical History Relation Name Comments Heart Attack Brother Hypertension Brother Other Father MVA Breast Cancer Maternal Aunt 1 50's Breast Cancer Maternal Aunt 2 60's Ovarian Cancer Maternal Cousin 20's Heart Disease Maternal Grandmother Hypertension Mother Stroke Mother Diabetes Sister Heart Attack Sister Colon Cancer Neg Hx Relation Name Status Comments Brother Alive Father Maternal Aunt 1 Alive Maternal Aunt 2 Maternal Cousin Alive Maternal Grandmother Mother Alive Sister Alive Social History Tobacco Use Types Packs/Day Years Used Date Smoking Tobacco: Never Smokeless Tobacco: Never Alcohol Use Standard Drinks/Week Comments Yes 0 (1 standard drink = 0.6 oz pur e alcohol) Rarely Comments No Sex and Gender Information Value Date Recorded Sex Assigned at Not on file 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 Gender Identity Not on file Sexual Orientation Not on file Occupation Industry Job Start Date Job End Date Not on file Not on file Not on file Not on file Last Filed Vital Signs Vital Sign Reading Time Taken Comments Blood Pressure 120/70 04/29/2018 10:31 AM CDT Pulse - - Temperature - - Respiratory Rate - - Oxygen Saturation - - Inhaled Oxygen Concentration - - Weight 72.6 kg (160 lb 2 oz) 04/29/2018 10:31 AM CDT Height 170.2 cm (5' 7) 04/29/2018 10:31 AM CDT Body Mass Index 25.08 04/29/2018 10:31 AM CDT Plan of Treatment Health Maintenance Due Date Last Done Comments FIT-DNA Q 3 years 2005 FIT/FOBT Q 1 year 2005 Flex Sig/CT Colonography Q 5 years 2005 PNEUMOCOCCAL VACCINE 50+ YEA RS (1 of 1 - PCV) 2010 OSTEOPOROSIS SCREENING 04/29/2020 04/29/2018, 2012 COLORECTAL SCREENING 04/29/2021 04/29/2011 Colorectal Cancer Screening 04/29/2021 INFLUENZA VACCINE (#1) 2025 , 09/11/2022, 09/24/2021, Additional history exists COVID-19 Vaccine (2 - 2024-2 6 season) 2025 11/20/2022 BREAST CANCER SCREENING 05/24/2026 05/24/20 25, 06/06/2024, 06/01/2023, Additional history exists DTAP/TDAP/TD VACCINES (2 - T d or Tdap) 05/21/2033 05/21/2023 RSV VACCINE (60+ or ) (1 - 1-dose 75+ series) 2035 ZOSTER VACCINE Completed 07/22/2018, 04/2018, 04/15/2018 Procedures Procedure Name Priority Date/Time Associated Diagnosis Comments MAMMO 3D EVIE SCREEN BILAT W OR WO CAD Routine 05/24/2025 3:02 PM CDT Visit for screening mammogram XR DEXA BONE DENSITY AXIAL 1 OR MORE SITES Routine 04/29/2018 12:01 PM CDT Screening for osteoporosis from Last 3 Months or Most Recently Relevant to Health Maintenance Results * MAMMO 3D EVIE SCREEN BILAT W OR WO CAD (05/24/2025 3:02 PM CDT) Anatomical Region Laterality Modality Breast Bilateral Mammography 05/24/2025 3:02 PM CDT Impressions 05/24/2025 3:06 PM CDT IMPRESSION: Negative. RECOMMENDATIONS: Bilateral annual screening mammogram RIGHT BREAST FINAL ASSESSMENT: BI-RADS CATEGORY 1: Negative. LEFT BREAST FINAL ASSESSMENT: BI-RADS CATEGORY 1: Negative. DICTATION LOCATION: [facility] Narrative 05/24/2025 3:06 PM CDT BILATERAL SCREENING DIGITAL MAMMOGRAMS WITH COMPUTER ASSISTED DIAGNOSIS WITH TOMOGRAPHY DATE: 05/24/2025 3:02 PM HISTORY: Routine screening mammogram. . COMPARISON: 06/06/2024 and 06/01/2023. TECHNIQUE: A bilateral screening mammogram was performed. Low-dose full-field digital breast tomosynthesis examination was performed with 2D and 3D acquisitions. Examination is read in conjunction with computer aided detection. BREAST COMPOSITION: Heterogeneously dense, which limits the sensitivity of mammography. FINDINGS: No new masses, suspicious calcifications or areas of asymmetry or distortion are identified. The images were reviewed using the CAD system. Juliana Mo MD MAMMO ORDERABLES Final Result * XR DEXA BONE DENSITY AXIAL 1 OR MORE SITES (04/29/2018 12:01 PM CDT) Anatomical Region Laterality Modality Digital Radiogra phy 04/29/2018 12:0 1 PM CDT Impressions 04/29/2018 12:05 PM CDT IMPRESSION: Osteopenic right femur neck BMD. Lumbar Spine T-score -0.7 Left femoral neck T-score -0.5 Right femoral neck T-score -1.1 Comments: None. Statistical change: No prior exam is available. Definitions: Normal: T-score above -1.0 Osteopenia T-score less than -1.0 and above -2.5 Osteoporosis: T-score <= -2.5 Follow-up Recommendations: Patients without high risk factors for osteoporosis T-score -1.0 to -1.5 - Consider repeat BMD in 5-10 years T-score -1.5 to - 2.0 - Consider repeat BMD in 3-5 years T-score -2.0 to - 2.5 - Consider repeat BMD every 2 years Patients on treatment for osteoporosis 1-2 years after initiation of treatment and every 2 years [address] Randi Eli MD DICTATION LOCATION: Location 1 - [facility] 04/29/2018 12:05 PM CDT EXAMINATION: BONE DENSITY STUDY (DXA) DATE: 04/29/2018 12:01 PM CLINICAL HISTORY: 57 years post menopausal female. PROCEDURE: Planar images of the lumbar spine and hip(s) using a [employer] DEXA scanner for bone mineral density determination (BMD). FINDINGS: Lumbar Spine (L1-L4) T-score -0.7 1.090 g/sq cm Left femoral neck T-score -0.5 0.972 g/sq cm Right femoral neck T-score -1.1 0.88 g/sq cm Detailed report placed in Imaging Section of [facility] [employer]. Procedure Note Randi Eli MD - 04/29/2018 EXAMINATION: BONE DENSITY STUDY (DXA) DATE: 04/29/2018 12:01 PM CLINICAL HISTORY: 57 years post menopausal female. PROCEDURE: Planar images of the lumbar spine and hip(s) using a LUNAR DEXA scanner for bone mineral density determination (BMD). FINDINGS: Lumbar Spine (L1-L4) T-score -0.7 1.090 g/sq cm Left femoral neck T-score -0.5 0.972 g/sq cm Right femoral neck T-score -1.1 0.88 g/sq cm Detailed report placed in Imaging Section of [facility]. IMPRESSION: Osteopenic right femur neck BMD. Lumbar Spine T-score -0.7 Left femoral neck T-score -0.5 Right femoral neck T-score -1.1 Comments: None. Statistical change: No prior exam is available. Definitions: Normal: T-score above -1.0 Osteopenia T-score less than -1.0 and above -2.5 Osteoporosis: T-score <= -2.5 Follow-up Recommendations: Patients without high risk factors for osteoporosis T-score -1.0 to -1.5 - Consider repeat BMD in 5-10 years T-score -1.5 to - 2.0 - Consider repeat BMD in 3-5 years T-score -2.0 to - 2.5 - Consider repeat BMD every 2 years Patients on treatment for osteoporosis 1-2 years after initiation of treatment and every 2 years thereafter [address] Randi Eli MD DICTATION LOCATION: Location 1 - [facility] Latesha Huggins MD DIAGNOSTIC IMAGING [facility] Final Result from Last 3 Months or Most Recently Relevant to Health Maintenance [facility] Care Teams Line Installer Repairer Relationship Specialty Start Date End Date Jayda Dumont MD PCP - General Family Practice 05/09/21
--- OUTSIDE RECORDS SUMMARY | 2025-10-16 00:57 | XMS_ITS | Encounter Summary ---
Author Organization [facility] Address [address] [place] [address] Care Team Providers Care Feeder Loader Name Role Phone Jayda Dumont MD Primary Care Provider [phone] Encounter Details Date Type Department Care Team (Late Contact Info) Description 07/30/2025 Telephone [facility] - Centralized Scheduling [facility] [place] [address] Demond Sexton MD [address] [address] [address] [address] [place] [address] Social History Tobacco Use Types Packs/Day Years Used Date Smoking Tobacco: Never Smokeless Tobacco: Never Alcohol Use Standard Drinks/Week Comments Not Currently 0 (1 standard drink = 0.6 oz pur e alcohol) Comments Unknown Sex and Gender Information Value Date Recorded Sex Assigned at Not on file 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 Gender Identity Not on file Sexual Orientation Not on file documented as of this encounter Plan of Treatment Upcoming Encounters Date Type Department Care Team (Late Contact Info) Description 06/05/2026 12:45 PM CDT Office Visit [facility] - ENT [address], [facility] [address] [place] [id number] Demond Sexton MD [address] [address] [place] [address] documented as of this encounter Visit Diagnoses Not on filedocumented in this encounter Care Teams Feeder Loader Relationship Specialty Start Date End Date Jayda Dumont MD [address] [place] [id number] PCP - General 01/13/22 documented as of this encounter
[2025-10-16 09:30] VITALS: BP 151/75; PULSE 92; RESP 18; TEMP 36.9; O2SAT 97; BMI 24.0
[2025-10-16] MEDS: LACTATED RINGERS 1,000 ML 150 ML IV CONT (09:48)
--- NOTE | 2025-10-16 10:07 | P.PNAN_ITS ---
Anes - Initial Pre Proc Eval Procedure: Operation Date: 10/16/25 10:30 Proposed Procedures p Screening Colonoscopy - Marcin Krishna MD Date/Time: 10/16/25 10:07 Surgeon: Marcin Krishna MD Pre Op Diagnosis: Personal history of colon polyps, unspecified Patient Data Age: 65 Gender: F Height: 1.7 m Weight: 69.6 kg Last Vital Signs Temp 36.9 C 10/16/25 09:30 Pulse 92 10/16/25 09:30 Resp 18 10/16/25 09:30 BP 151/75 H 10/16/25 09:30 Pulse Ox 97 10/16/25 09:30 O2 Del Method Room Air 10/16/25 09:30 Allergies Allergy/AdvReac Type Severity Reaction Status Date / Time escitalopram AdvReac Severe severe Verified 10/16/25 09:37 anxiety Home Medications ?Medication ?Instructions ?Recorded ?Confirmed ?Type conj estrogen-medroxyprogesterone 1 tablet PO DAILY 10/16/25 History 0.625 mg-2.5 mg tablet (Prempro) diphenhydramine HCl 25 mg capsule 25 mg PO HS PRN Slee p 09/19/19 10/16/25 History (Benadryl) ooxuqddq-bmv-pvhrt ac 400 1 tablet PO .q day 05/23/24 10/16/25 History mcg-calcium carb 500 mg-vit K1 20 mcg tablet metoprolol succinate 25 mg 12.5 mg PO DAILY 09/29/24 1 12/17/24 History tablet,extended release 24 hr levothyroxine 100 mcg tablet See Rx Instructions .Rout e 05/16/25 10/16/25 Rx .COMPLEX #90 tabs acetaminophen 325 mg tablet 325 mg PO ONCE Pain, Mild 05/24/25 09/26/25 History (Tylenol) buspirone 10 mg tablet See Rx Instructions .Route 1 11/19/24 10/16/25 Rx .COMPLEX #90 tabs sodium sul 1.479 gram-potas ch See Rx Instructions PO .COMPLEX 09/26/25 Rx 0.188 gram-magnes sul 0.225 gram #24 tabs tablet (Sutab) Patient hx anesthesia problems: none Family hx anesthesia problems: none Results Review: All pre-operative results and documents have been reviewed as part of the pre- operative evaluation. [facility] Past Medical History Medical History Actinic keratosis Diarrhea Ganglion cyst Trochanteric bursitis, right hip Right shoulder pain Normal stress echocardiogram 7.9.20 Stiffness in joint Arthralgia of multiple joints Exercise intolerance Ventricular tachycardia, non-sustained episodes of non sustained VT in past, controlled with metoprolol Carpal tunnel syndrome Eczematous dermatitis of eyelid Lesion of ulnar nerve Other spondylosis with radiculopathy, cervical region Syncope and collapse Trochanteric bursitis of both hips Ventricular tachycardia episodes of non sustained VT in past, controlled with metoprolol Menopause Pansinusitis Osteoarthritis Hypothyroidism IBS (irritable bowel syndrome) Depression Anxiety Surgical History Surgical History Status post surgical removal of malignant neoplasm of skin Family History Family History Sibling Hypertension Family history of cardiovascular disease Acute myocardial infarction Family history of lupus erythematosus Diabetes mellitus Mother Hypertension Cerebrovascular accident Grandparent Cerebrovascular accident Family history of malignant neoplasm of stomach Other Depression Family history of hypercholesterolemia Family history of malignant neoplasm of breast Social History Social History Smoking status: Never smoker Second hand tobacco smoke exposure: No Alcohol intake: never Alcohol use details: Rarely Substance use: never Substance use type: does not use Lack of Transportation: No Lack of Food: Never True Current Housing: I Have Housing Concerned About Future Housing: No Difficulty Paying Gas/Electric Bills: No Difficulty Paying for Meds: No Currently Unemployed: No Education: Master's Degree or Higher Living arrangements: alone Occupation/Education: retired Gender identity (if verbalized by the patient): Female Spiritual care concerns: No Agree to blood products: Yes Anes - Eval Final PreProcedure Day of Procedure 10/16/25 10:07 Patient weight: normal Heart: regular rate and rhythm Lungs: clear to auscultation Airway: Mallampati scale class II Neurological: alert and oriented Last oral intake: >/= 8 hours ASA classification: III Emergent: no Anesthetic plan: proceed Anesthesia type and monitoring: general GIVS and standard monitoring Results Review: All pre-operative results and documents have been reviewed as part of the pre- operative evaluation. Informed Consent: The patient's anesthetic plan and its attendant risks and benefits were discussed with the patient/family/POA. Questions were solicited and answers provided to the satisfaction of the patient/family/POA.
--- NOTE | 2025-10-16 10:10 | PM.HPGS ---
History of Present Illness History of Present Illness Consent: Risks, benefits, and alternatives have been discussed and questions answered. Patient agrees to proceed with procedure. Chief complaint: Personal history of colon polyps, unspecified Narrative: Elsa Diane is a 65 year old female with colon polyp in 2019 Review of Systems Review of Systems: All systems reviewed & are unremarkable except as noted in HPI and below PMFSH Past Medical History Medical History Actinic keratosis Diarrhea Ganglion cyst Trochanteric bursitis, right hip Right shoulder pain Normal stress echocardiogram 7.9.20 Stiffness in joint Arthralgia of multiple joints Exercise intolerance Ventricular tachycardia, non-sustained episodes of non sustained VT in past, controlled with metoprolol Carpal tunnel syndrome Eczematous dermatitis of eyelid Lesion of ulnar nerve Other spondylosis with radiculopathy, cervical region Syncope and collapse Trochanteric bursitis of both hips Ventricular tachycardia episodes of non sustained VT in past, controlled with metoprolol Menopause Pansinusitis Osteoarthritis Hypothyroidism IBS (irritable bowel syndrome) Depression Anxiety Surgical History Surgical History Status post surgical removal of malignant neoplasm of skin Family History Family History Sibling Hypertension Family history of cardiovascular disease Acute myocardial infarction Family history of lupus erythematosus Diabetes mellitus Mother Hypertension Cerebrovascular accident Grandparent Cerebrovascular accident Family history of malignant neoplasm of stomach Other Depression Family history of hypercholesterolemia Family history of malignant neoplasm of breast Social History Social History Smoking status: Never smoker Second hand tobacco smoke exposure: No Alcohol intake: never Alcohol use details: Rarely Substance use: never Substance use type: does not use Lack of Transportation: No Lack of Food: Never True Current Housing: I Have Housing Concerned About Future Housing: No Difficulty Paying Gas/Electric Bills: No Difficulty Paying for Meds: No Currently Unemployed: No Education: Master's Degree or Higher Living arrangements: alone Occupation/Education: retired Gender identity (if verbalized by the patient): Female Spiritual care concerns: No Agree to blood products: Yes Meds Home Medications and Allergies Home Medications ?Medication ?Instructions ?Recorded ?Confirmed ?Type conj estrogen-medroxyprogesterone 1 tablet PO DAILY 09/19/19 10/16/25 History 0.625 mg-2.5 mg tablet (Prempro) diphenhydramine HCl 25 mg capsule 25 mg PO HS PRN Sleep 09/19/19 10/16/25 History (Benadryl) iresqbnl-ndi-rkuds ac 400 1 tablet PO .q day 05/23/24 10/16/25 History mcg-calcium carb 500 mg-vit K1 20 mcg tablet metoprolol succinate 25 mg 12.5 mg PO DAILY 09/29/24 10/16/25 History tablet,extended release 24 hr levothyroxine 100 mcg tablet See Rx Instructions .Route 05/16/25 10/16/25 Rx .COMPLEX #90 tabs acetaminophen 325 mg tablet 325 mg PO ONCE Pain, Mild 05/24/25 09/26/25 History (Tylenol) buspirone 10 mg tablet See Rx Instructions .Route 09/19/25 10/16/25 Rx .COMPLEX #90 tabs sodium sul 1.479 gram-potas ch See Rx Instructions PO .COMPLEX 09/26/25 Rx 0.188 gram-magnes sul 0.225 gram #24 tabs tablet (Sutab) Allergies Allergy/AdvReac Type Severity Reaction Status Date / Time escitalopram AdvReac Severe severe Verified 10/16/25 09:37 anxiety Vital Signs Vital Signs - 24 hr 10/16/25 09:30 Temperature 98.4 F Pulse Rate 92 Respiratory Rate 18 Blood Pressure 151/75 H Pulse Oximetry 97 Oxygen Delivery Room Air Exam Const: General: comfortable and no acute distress HENMT: Face/Nose/Sinus: Normal nares present Eyes: General: appearance normal, both eyes and all related structures Resp: Auscultation: clear to auscultation bilaterally Cardio: Rate: regular rate Rhythm: regular rhythm GI: Inspection: non-distended GI Palp: Yes Soft to palpation Skin: General skin exam: normal color Extrem: General: normal to inspection Psych: Mental Status: mental status grossly normal Assessment and Plan Assessment and plan (1) Colon polyp, hyperplastic: Code(s): K63.5 - Polyp of colon Status: Acute Assessment and Plan: colonoscopy
--- NOTE | 2025-10-16 10:24 | S_PTH ---
PATIENT: Elsa Diane LOC: [facility] Patel#:[id number] AGE/SX: 65/F ROOM: RE10/16/[address]: Marcin Krishna MD : 1960 BED: DIS: 10/16/2025 SPEC #: [id number] RECD: 10/16/25 11:29 STATUS: MARVEL RERosangela #: [id number] TONY: 10/16/25 10:[address]: Marcin Krishna DEPT: [facility] Surgical RECD BY: Sherry Coles ENTERED: 10/16/25 11:29 SP TYPE: Surgical OTHR DR: Jayda Dumont MD Tissues: A - Colon Polypectomy Procedures: Hematoxylin and Eosin Stain Gross and Microscopic Level 4
[2025-10-16 10:26] VITALS: BP 91/42; PULSE 81; RESP 19; O2SAT 95
[2025-10-16 10:36] VITALS: BP 93/44; PULSE 84; RESP 20; O2SAT 96
[2025-10-16 10:46] VITALS: BP 108/61; PULSE 73; RESP 20; O2SAT 98
== END 2025-10-16 10:57 | disposition home or self-care (01) ==
PROVIDERS: PCP Family Medicine; Referring Provider Student in an Organized Health Care Education/Training Program; Visit Provider Internal Medicine Gastroenterology
PROC: 0DJD8ZZ Inspection of Lower Intestinal Tract, Via Natural or Artificial Opening Endoscopic (ICD-10-PCS; CPT 45378; principal; 2025-10-16 10:30)
DX: Z12.11 Encounter for screening for malignant neoplasm of colon (principal); K63.5 Polyp of colon; K64.8 Other hemorrhoids
CPT/HCPCS: 45385; 88305; J2003; J2704; J7120